=== PATIENT | male | born 1985 | race American Indian/Alaskan Native ===

== ENCOUNTER 2017-11-04 09:31 | Emergency (ER) | payer SELFPAY ==
[2017-11-04 09:44] VITALS: BP 120/72; PULSE 84; RESP 18; TEMP 98.1; O2SAT 98
[2017-11-04] MEDS ORDERED: Naproxen 550 mg Tab PO STA (09:50)
[2017-11-04] MEDS ORDERED: Naproxen 550 mg Tab PO ONE (09:58)
--- NOTE | 2017-11-04 09:59 | C.PDOC ---
History Of Present Illness 32 year old male presents to the emergency department with complaints of left posterior shoulder pain radiating to his left upper chest and down his left arm. Patient states that the pain began this morning and woke him up, describing it as a tingling and burning sensation. He denies cough, fever, shortness of breath, rash, or injuries. He also denies any past medical history or recent airplane travel. His family history is negative for blood clots or MD. Patient states that he is right-hand dominant. Time Seen by Provider: 11/04/17 09:39 Chief Complaint (Nursing): Upper Extremity Problem/Injury History Per: Patient History/Exam Limitations: no limitations Onset/Duration Of Symptoms: Hrs Current Symptoms Are (Timing): Still Present Quality: Burning, "Pain", Other (tingling) Recent travel outside of the [place]: No Past Medical History Reviewed: Historical Data, Nursing Documentation, Vital Signs Vital Signs: Last Vital Signs Temp 98.1 F 11/04/17 09:42 Pulse 84 11/04/17 09:42 Resp 18 11/04/17 09:42 BP 120/72 11/04/17 09:42 Pulse Ox 98 11/04/17 10:00 - Medical History PMH: No Chronic Diseases Surgical History: No Surg Hx Family History: States: No Known Family Hx Denies: MD - Social History Hx Alcohol Use: Yes Hx Substance Use: No Review Of Systems Constitutional: Negative for: Fever Cardiovascular: Positive for: Chest Pain (left) Respiratory: Negative for: Cough, Shortness of Breath Musculoskeletal: Positive for: Shoulder Pain (left), Arm Pain (left) Physical Exam - Physical Exam Appears: Non-toxic, No Acute Distress Skin: Warm, Dry Head: Atraumatic, Normacephalic Eye(s): bilateral: Normal Inspection Nose: Normal Neck: Normal, Supple Chest: Symmetrical, No Tenderness Cardiovascular: Rhythm Regular, No Murmur Respiratory: No Rales, No Rhonchi, No Wheezing Neurological/Psych: Oriented x3, Normal Speech, Normal Cognition ED Course And Treatment ECG: Interpreted By Me, Viewed By Me ECG Rhythm: Sinus Rhythm ECG Interpretation: Normal Interpretation Of ECG: Normal sinus rhythm at 73bpm, normal axis, no acute ST/T wave changes. O2 Sat by Pulse Oximetry: 98 (RA) Pulse Ox Interpretation: Normal Progress Note: Patient treated with Naprosyn and Flexeril. Patient reported feeling better and was discharged home. Disposition Counseled Patient/Family Regarding: Diagnosis, Need For Followup, Rx Given - Disposition Referrals: [facility] [Outside] Disposition: HOME/ ROUTINE Disposition Time: 10:10 Condition: STABLE Additional Instructions: FOLLOW UP WITH YOUR DOCTOR/CLINIC IN 1-2 DAYS USE MEDICATIONS NEEDED RETURN TO ER IF SYMPTOMS WORSEN Prescriptions: Cyclobenzaprine [Flexeril] 10 mg PO BID PRN #15 tab PRN Reason: Muscle Spasm Naproxen 375 mg PO BID PRN #20 tablet PRN Reason: pain Instructions: Muscle Strain (DC), Shoulder Pain (DC) Forms: [employer] (Greenlandic) Print Language: NIGERIAN - POA Present On Arrival: None - Clinical Impression Clinical Impression: Left shoulder pain, Muscle spasm of left shoulder - Scribe Statement The provider has reviewed the documentation as recorded by the Scribe (Rafael Croft) Provider Attestation: All medical record entries made by the Scribe were at my direction and personally dictated by me. I have reviewed the chart and agree that the record accurately reflects my personal performance of the history, physical exam, medical decision making, and the department course for this patient. I have also personally directed, reviewed, and agree with the discharge instructions and disposition.
--- NOTE | 2017-11-07 16:54 | CARD ---
APPROVED REPORT Date of service: 11/04/2017 EKG Measurement Heart [id number] <Conclusion> Normal sinus rhythm Normal ECG
== END 2017-11-04 10:06 | disposition home or self-care (01) ==
LOC: C.ER 09:31
DX: M25.512 Pain in left shoulder (principal); M62.838 Other muscle spasm